=== PATIENT | male | born 1955 | race Caucasian/White ===

== ENCOUNTER 2018-05-18 20:21 | Inpatient (IN) | payer MEDICARE, OTHER ==
[~2018-05-18] VITALS: Ht 182.9 cm; Wt 96.3 kg
[2018-05-18 20:40] LABS: Calcium, Ionized (POC) 1.08 mmol/L (1.10-1.46); Chloride (POC) 106 mmol/L (98-108); Creatinine (POC) 1.2 mg/dL (0.8-1.3); Glucose (ISTAT POC) 124 mg/dL (70-99); Hemoglobin (POC) 13.6 g/dL (13.5-17.5); Potassium (POC) 3.2 mmol/L (3.5-5.5); Sodium (POC) 142 mmol/L (135-148); Total CO2 (POC) 21 mmol/L (21-32)
[2018-05-18 20:45] LABS: Hematocrit 43.4 % (37.0-53.0); Hemoglobin 14.7 g/dL (13.5-17.5); Mean Corpuscular HGB 30.6 pg (26.0-34.0); Mean Corpuscular HGB Conc 33.9 g/dL (31.5-36.5); Mean Corpuscular Volume 90 fL (80-100); Mean Platelet Volume 10.2 fL (9.1-12.4); Platelet Count 283 K/mm3 (150-400); RDW Coefficient Variation 12.6 % (11.7-14.2); RDW Standard Deviation 41.7 fL (35.1-46.3); White Blood Cell Count 8.63 K/mm3 (4.00-11.30)
[2018-05-18] MEDS ORDERED: ROSU5 PO (20:54)
[2018-05-18 20:59] LABS: International Normalized Ratio 0.91; Prothrombin Time Results 9.4 Sec (9.7-11.5)
[2018-05-18 21:04] LABS: Anion Gap 12 mmol/L (6-16); Blood Urea Nitrogen 18 mg/dL (8-24); Bun/Creatinine Ratio 15.1 (12.0-20.0); CHOL/HDL RATIO 3.9; CO2, Blood 21 mmol/L (21-32); CPK Creatine Kinase 389 U/L (39-308); Calcium, Blood 8.6 mg/dL (8.5-10.1); Chloride, Blood 107 mmol/L (98-108); Cholesterol 170 mg/dL (50-200); Creatine Kinase MB 4.6 ng/mL (0.0-3.6); Creatine Kinase MB Index 1.2 (0.0-4.0); Creatinine, Blood 1.19 mg/dL (0.60-1.20); Glomerular Filtration Rate >60 (60-); Glucose, Blood 112 mg/dL (70-99); HDL Cholesterol 44 mg/dL (>39); LDL/HDL RATIO 1.8; Low Density Lipoprotein Chol 79 mg/dL (0-110); Magnesium, Blood 2.2 mg/dL (1.6-2.4); Potassium, Blood 3.4 mmol/L (3.5-5.5); Sodium, Blood 140 mmol/L (136-145); Triglycerides 236 mg/dL (30-160); Troponin I 0.024 ng/mL (0.000-0.040); Very Low Density Lipoprot Chol 47 mg/dL (6-32)
--- NOTE | 2018-05-18 22:26 | NUR ---
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 PT ON AMIODERONE GTT, KCL GTT, NS TKO. PLAN IS TO TRANSFER PT TO [facility] FOR CARDIAC CT YAEL. FAMILY W PT NOW, PT A&O USING URINAL. VSS, TR BAND ON R RADIAL SITE STABLE AND VISUALIZED BY FUEL EFFICIENT AUTOMOBILE DESIGNER.
--- NOTE | 2018-05-18 23:27 | NUR ---
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 PT ARRIVED A+O X4 TALKING IN CLEAR SENTENCES. PT STATED LEFT ARM PAIN 5/10 BETTER THAN THE 10/10 PAIN WHEN FIRST ARRIVED TO HOSPITAL PER PT. PT PLACED ON HEART MONITOR RYTHYM NSR WITH SLIGHT ST ELEVATION. TR BAND WNL REMAINING INFLATED WITH NO DRAINAGE NOTED AND <2 SEC CAP REFILL TO RIGHT HAND NAIL BEDS. LS CLEAR. S1 AND S2 NOTED WITH NO MURMUR NOTED. PT DENIED SOB. O2 AT 2L PLACED VIA N/C. SATS REMAINING ABOVE 95%. PT FAMILY AND FRIEND CAME TO PT'S BEDSIDE IMMEDIATELY AFTER PT TO ROOM. DR. STEIN CAME TO BEDSIDE TO UPDATE FAMILY AND PT. VERBAL ORDER GIVEN AT THAT TIME FOR FENTANYL (SEE ORDER). FENTANYL 25mcg IVP GIVEN BRINGING PT'S PAIN DOWN TO 2/10. REPORT CALLED TO [facility] BY WASTE MINIMIZATION TECHNICIANKOSTAS ALVA. [facility] ARRIVED TO PT ROOM AT APPROX. 2310. PT LEFT ROOM VIA AMBULANCE GUNEY AT 2322. PT TRANSFERRED WITH AMIODARONE AT 33.3mL/hr AND HEPARIN AT 13U/21.6ML PER HOUR. PT A+O X4 TALKING TO HIS FAMILY HE LEFT. DRIVING VIA PERSONAL VEHICLE TO [facility].
== END 2018-05-18 23:29 | disposition short-term general hospital (02) | DRG 281 ==
LOC: ER 20:21 → ICUW 20:34 → ICUE 20:40
PROVIDERS: Emergency Medicine; ADMIT Emergency Medicine
PROC: B2111ZZ Fluoroscopy of Multiple Coronary Arteries using Low Osmolar Contrast (ICD-10-PCS; principal; 2018-05-18)
PROC: 5A2204Z Restoration of Cardiac Rhythm, Single (ICD-10-PCS; 2018-05-18)
DX: I21.09 ST elevation (STEMI) myocardial infarction involving other coronary artery of anterior wall (principal); I47.2 Ventricular tachycardia; I25.41 Coronary artery aneurysm; E78.5 Hyperlipidemia, unspecified; I25.10 Atherosclerotic heart disease of native coronary artery without angina pectoris; E87.6 Hypokalemia; Z85.46 Personal history of malignant neoplasm of prostate; Z90.79 Acquired absence of other genital organ(s)
CPT/HCPCS: 36415; 71045; 80047; 80048; 80061; 82550; 82553; 83735; 84484; 85014; 85027; 85347; 85610; 85730; 86850; 86900; 86901; 92920; 93005; 93010; 93454; 99152; 99153; 99285-25; C1769; C1887; C1894; J0282; J1644; J2250; J2720; J3010; J7030; J7040; J7060; Q9967